=== PATIENT | male | born 1990 | race Caucasian/White ===

== ENCOUNTER 2017-01-19 21:03 | Emergency (ER) | payer OTHER ==
[2017-01-19 21:12] VITALS: BP 127/64; PULSE 72; TEMP 97.7; BMI 30.2
[2017-01-19] MEDS ORDERED: FLUORESCEIN NA 1 EA STRIP NR ONE (22:44)
[2017-01-19] MEDS ORDERED: TETRACAINE 0.5% HCL 0.6ML DROPPER.BOTTLE OU ONE (22:45)
[2017-01-19] MEDS ORDERED: FLUORESCEIN NA 1 EA STRIP ONE (23:02)
[2017-01-19] MEDS ORDERED: TETRACAINE 0.5% OPHTH SOLN 2 ML BOTTLE ONE (23:02)
--- NOTE | 2017-01-19 23:19 | PDOC ---
History of Present Illness - General Chief Complaint: Foreign Body (FB) Stated Complaint: FOREIGN OBJECT(EYE)-INJURY AT WORK Time Seen by Provider: 01/19/17 22:43 History Source: Patient Exam Limitations: No Limitations - History of Present Illness Initial Comments: 01/19/17 23:14 26 yo Male patient presents to ED c/o eye pain, swelling, and possibly something in eye. Patient states while working yesterday he was exposed to chemical dust on his hands which he rubbed his right eye with. He states yesterday his right eye was irritated, but he thought it would get better. He now presents with blurred vision, eye redness, eye lid swelling, discharge and pain. Patient denies corrective lens use. Unsure of tetanus status. Denies any other complaints at this time. Denies trauma, injury to right eye. Timing/Duration: getting worse Severity: severe Modifying Factors: worse with: cold therapy, eating, immobilization, medication , movement, rest, other Associated Symptoms: denies: denies symptoms, chest pain, cough, diaphoresis, fever/chills, headaches, loss of appetite, malaise, nausea/vomiting, rash, seizure, shortness of breath, syncope, weakness, other Past History - Travel Traveled outside of the country in the last 30 days: No Close contact w/someone who was outside of country & ill: No - Past Medical History Allergies/Adverse Reactions: Allergies Allergy/AdvReac Type Severity Reaction Status Date / Time No Allergy Information Allergy Verified 01/19/17 21:09 Available Home Medications: Ambulatory Orders Ondansetron [Zofran *Odt*] 4 mg SL TID #30 od.tablet 11/12/16 Ciprofloxacin 0.3% Eye Drops [Ciloxan 0.3% Eye Drops -] 2 drop OD Q3H #1 bottle 01/19/17 Other medical history: denies - Psycho/Social/Smoking Cessation Hx Suicidal Ideation: No Smoking History: Never smoked Number of Cigarettes Smoked Daily: 0 Hx Alcohol Use: No Drug/Substance Use Hx: No Review of Systems - Review of Systems Able to Perform ROS?: Yes Is the patient limited [place] proficient: Yes Constitutional: No: Chills, Fever HEENTM: Yes: Eye Pain, Blurred Vision, Tearing. No: Recent change in vision, Double Vision, Cataracts, Ear Pain, Ocular Prothesis, Ear Discharge, Nose Congestion, Throat Swelling, Difficulty Swallowing, Mouth Swelling Respiratory: No: Cough, Shortness of Breath, Stridor, Wheezing Cardiac (ROS): No: Chest Pain Integumentary: No: Bruising, Erythema, Rash All Other Systems: Reviewed and Negative *Physical Exam - Vital Signs Last Vital Signs Temp Pulse Resp BP Pulse Ox 97.7 F 72 18 127/64 100 01/19/17 21:10 01/19/17 21:10 01/19/17 21:10 01/19/17 21:10 01/19/17 21:10 - Physical Exam General Appearance: Yes: Nourished, Appropriately Dressed, Apparent Distress, Moderate Distress. No: Mild Distress, Severe Distress HEENT: positive: EOMI, JANENE, Normal Voice, Symmetrical, TMs Normal, Pharynx Normal, Other (Right eye with severe/injected conjunctiva and sclera. upper and lower lid swelling with small amount of discharge noted.). negative: Normal ENT Inspection, Photophobia, Scleral Icterus (R), Scleral Icterus (L), Pharyngeal Erythema, Tonsillar Exudate, Tonsillar Erythema, Nasal Congestion, Rhinorrhea, Sinus Tenderness, Orbits, TM Bulging, TM Erythema Neck: positive: Trachea midline, Normal Thyroid, Supple. negative: Stridor, Lymphadenopathy (R), Lymphadenopathy (L) Respiratory/Chest: positive: Lungs Clear, Normal Breath Sounds. negative: Respiratory Distress, Accessory Muscle Use, Labored Respiration, Rapid RR, Crackles, Rales, Rhonchi, Stridor, Wheezing Cardiovascular: positive: Regular Rhythm, Regular Rate. negative: Edema, JVD, Murmur Gastrointestinal/Abdominal: positive: Normal Bowel Sounds, Soft. negative: Distended, Guarding, Rebound, Tenderness Musculoskeletal: positive: Normal Inspection. negative: CVA Tenderness Extremity: positive: Normal Capillary Refill, Normal Inspection, Normal Range of Motion Integumentary: positive: Normal Color, Dry, Warm Neurologic: positive: manager food safety II-XII NML intact, Fully Oriented, Alert, Normal Mood/ Affect, Normal Response, Motor Strength 5/5 Procedures - Eye Procedure Alcaine Drops Administered: Yes Eye Irrigated w/ Saline(John Lens): Yes (40 cc) Antibiotic Oinment/Drps Admin: right eye Progress: 01/19/17 23:21 Murphy lamp exam. Patient tolerated procedure well. Visual Eye Acuity 20/25 right eye. Denies corrective lens use. *DC/Admit/Observation/Transfer Diagnosis at time of Disposition: Bacterial conjunctivitis of right eye - Discharge Dispostion Disposition: HOME Condition at time of disposition: Stable Admit: No - Prescriptions Prescriptions: Ciprofloxacin 0.3% Eye Drops [Ciloxan 0.3% Eye Drops -] 2 drop OD Q3H #1 bottle - Referrals Referrals: Sidney Fernando MD [Staff Physician] - - Patient Instructions Printed Discharge Instructions: How to Instill Eye Drops, DI for Conjunctivitis Additional Instructions: Seguimiento con el Dr. Sidney Fernando dentro de 48 horas para la evaluacin posterior de la infeccin del jerel derecho. Usted debe administrar 2 gotas cada 3 horas mientras est despierto x 3 carter, luego 2 gotas cada 4 horas x 2 caretr mientras est despierto. Contine usando medicamentos incluso cuando el jerel aparezca y se sienta mejor. Usted debe seguir con Oftalmologa sin falta. No hay trabajo x 2 da. Puede aplicar compresas frescas sobre los ojos vicente sea necesario para mayor comodidad. Motrin o Tylenol para el dolor segn sea necesario. Follow up with Dr. Sidney Fernando within 48 hours for further evaluation of right eye infection. You are to administer 2 drops every 3 hours while awake x 3 days, then 2 drops every 4 hours x 2 days while awake. Continue use of medication even when eye appears and feels better. You must follow up with Ophthalmology without fail. No work x 2 day. You may apply cool compresses over eye as needed for comfort. Motrin or Tylenol for pain as needed. Print Language: BAHAMIAN - Post Discharge Activity Work/School Note: Back to Work
--- NOTE | 2017-01-19 23:32 | PDOC ---
*Physical Exam - Vital Signs Last Vital Signs Temp Pulse Resp BP Pulse Ox 97.7 F 72 18 127/64 100 01/19/17 21:10 01/19/17 21:10 01/19/17 21:10 01/19/17 21:10 01/19/17 21:10 ED Treatment Course - Medications Given in the ED: ED Medications Discontinued Medications Generic Name Dose Route Start Last Admin Trade Name Freq PRN Reason Stop Dose Admin Fluorescein Sodium 1 ea 01/19/17 22:44 01/19/17 23:14 Fluorets - NR 01/19/17 22:45 1 ea ONCE ONE Administration Tetracaine HCl 1 drop 01/19/17 22:45 01/19/17 23:14 Tetravisc 0.5% Eye Drops - OU 01/19/17 22:46 1 drop ONCE ONE Administration Medical Decision Making - Medical Decision Making 01/19/17 23:32 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 Sidney Fernando dentro de 48 horas para la evaluacin posterior de la infeccin del jerel derecho. Usted debe administrar 2 gotas cada 3 horas mientras est despierto x 3 carter, luego 2 gotas cada 4 horas x 2 carter mientras est despierto. Contine usando medicamentos incluso cuando el jerel aparezca y se sienta mejor. Usted debe seguir con Oftalmologa sin falta. No hay trabajo x 2 da. Puede aplicar compresas frescas sobre los ojos vicente sea necesario para mayor comodidad. Motrin o Tylenol para el dolor segn sea necesario. Follow up with Dr. Sidney Fernando within 48 hours for further evaluation of right eye infection. You are to administer 2 drops every 3 hours while awake x 3 days, then 2 drops every 4 hours x 2 days while awake. Continue use of medication even when eye appears and feels better. You must follow up with Ophthalmology without fail. No work x 2 day. You may apply cool compresses over eye as needed for comfort. Motrin or Tylenol for pain as needed. Print Language: GEORGIAN - Post Discharge Activity Work/School Note: Back to Work
[2017-01-20] MEDS ORDERED: CIPROFLOXACIN 0.3% EYE DROPS 5 ML BOTTLE OD ONE (23:23)
== END 2017-01-19 23:39 | disposition home or self-care (01) ==
LOC: JER 21:03
DX: H10.89 Other conjunctivitis (principal)
CPT/HCPCS: 99281-25